=== PATIENT | female | born 1965 | race Two or more races ===

== ENCOUNTER → 2017-09-02 | Outpatient (CLI) | payer MEDICARE, MEDICAID ==
[2017-09-02 19:45] LABS: LYMPH % 28.8 % (10-50.0)
[2017-09-02 20:07] LABS: BUN 36 mg/dL (7-18)
[2017-09-02 20:10] LABS: GFR (ESTIMATED) 28 ML/MIN (59-)
== END ==
LOC: LAB 19:22
PROVIDERS: Nurse Practitioner Family
DX: E11.9 Type 2 diabetes mellitus without complications (principal); D49.7 Neoplasm of unspecified behavior of endocrine glands and other parts of nervous system